=== PATIENT | female | born 1980 | race African-American/Black ===

== ENCOUNTER 2020-08-02 05:07 | Emergency (ER) | payer OTHER, SELFPAY ==
[2020-08-02] MEDS ORDERED: Morphine 4 MG/ML VIAL ONE (05:48)
[2020-08-02] MEDS ORDERED: Ondansetron PF 4 MG/2 ML Vial ONE (05:49)
[2020-08-02 05:57] LABS: #Eosinphils 0.1 thou/uL (0.0-0.7); #Lymphocytes 2.2 thou/uL (1.20-3.40); #Monocytes 0.4 thou/uL (0.11-0.59); #Neutrophils 2.2 thou/uL (1.40-6.50); %Basophils 0.9 % (0.0-1.0); %Eosinophils 2.4 % (0.0-10.0); %Lymphocytes 43.7 % (21.0-51.0); %Monocytes 8.4 % (0.0-10.0); %Neutrophils 44.7 % (42.0-75.0); Hemoglobin 12.8 g/dL (12.0-16.0); Mean Corpuscular HGB CONC 33.4 g/dL (32.0-36.0); Mean Corpuscular Hemoglobin 32.6 pg (27.0-31.0); Mean Corpuscular Volume 97.4 fL (78.0-98.0); Mean Platelet Volume 10.3 fL (7.4-10.4); Platelet Count 182 thou/uL (130-400); RBC Distribution Width 11.9 % (11.5-14.5); Red Blood Cell (RBC) Count 3.93 mill/uL (4.20-5.40)
[2020-08-02 06:01] LABS: Pregnancy Test - Urine (BHCG) Negative (Negative); Pregu Control Background? CLEAR/WHITE (CLR/WHITE); Pregu Control Bar Appear? YES (CONTROL BAR)
[2020-08-02 06:03] LABS: Bacteria/HPF None Seen HPF (None Seen); Bilirubin Negative (Negative); Blood, Urine Negative (Negative); Clarity Clear (Clear); Glucose, Urine (Dipstick) Normal (Negative); Ketone, Urine Trace mg/dL (Negative); Leukocyte Negative Leu/uL (Negative); Nitrite Negative (Negative); Protein, Urine (Dipstick) 50 mg/dL (Neg-Trace); Specific Gravity 1.047 (1.002-1.036); Specific Gravity, Urine 1.047 (1.002-1.036); Squamous Epithelial 0-3 HPF (0-3); WBC/HPF 0-3 HPF (0-3); pH, Urine 6.5 (5.0-9.0)
[2020-08-02 06:19] LABS: ALT (SGPT) 7 U/L (8-55); AST (SGOT) 14 U/L (5-34); Albumin 4.6 g/dL (3.5-5.0); Alkaline Phosphatase 69 U/L (40-110); Anion Gap 13 mmol/L (10-20); BUN (Urea Nitrogen) 11 mg/dL (7.0-18.7); Bilirubin, Total 0.3 mg/dL (0.2-1.2); Calc. Creatinine Clearance 0 mL/min (70-130); Calcium 8.7 mg/dL (7.8-10.44); Carbon Dioxide 24 mmol/L (22-29); Chloride 106 mmol/L (98-107); Globulin 3.2 g/dL (2.4-3.5); Glucose 94 mg/dL (70-105); Lipase 23 U/L (8-78); Potassium 3.4 mmol/L (3.5-5.1); Protein, Total 7.8 g/dL (6.0-8.3); Sodium 140 mmol/L (136-145)
[2020-08-02] MEDS ORDERED: Iopamidol 370 76% 100 ML VIAL ONE (12:51)
[2020-08-02 13:31] LABS: SARS-CoV-2 PCR by NAA Not Detected (NotDetected)
== END 2020-08-02 07:00 | disposition home or self-care (01) ==
LOC: ERS 05:07
DX: R10.9 Unspecified abdominal pain (principal); R43.8 Other disturbances of smell and taste; R68.83 Chills (without fever); T83.32XA Displacement of intrauterine contraceptive device, initial encounter; Z20.822 Contact with and (suspected) exposure to COVID-19
CPT/HCPCS: 74177; 80053; 81003; 81015; 81025; 83690; 85025; 87635; 96374; 96375; J2270; J2405; Q9967; U0003; U0005

== ENCOUNTER 2021-10-26 23:06 | Emergency (ER) | payer OTHER, SELFPAY ==
[2021-10-26] MEDS ORDERED: Ibuprofen 800 MG TAB ONE (23:37)
== END 2021-10-27 00:40 | disposition home or self-care (01) ==
LOC: ERS 23:06
DX: S16.1XXA Strain of muscle, fascia and tendon at neck level, initial encounter (principal); S39.012A Strain of muscle, fascia and tendon of lower back, initial encounter; S50.02XA Contusion of left elbow, initial encounter; F17.210 Nicotine dependence, cigarettes, uncomplicated; V43.52XA Car driver injured in collision with other type car in traffic accident, initial encounter

== ENCOUNTER 2021-11-05 09:13 | Emergency (ER) | payer SELFPAY ==
[2021-11-05] MEDS ORDERED: Ketorolac Tromethamine 30 MG/ML VIAL ONE (10:54)
== END 2021-11-05 11:03 | disposition home or self-care (01) ==
LOC: ERS 09:13
DX: S39.012A Strain of muscle, fascia and tendon of lower back, initial encounter (principal); F17.210 Nicotine dependence, cigarettes, uncomplicated; V89.2XXA Person injured in unspecified motor-vehicle accident, traffic, initial encounter
CPT/HCPCS: 72100; 96372; J1885

== ENCOUNTER 2022-01-12 11:00 | Emergency (ER) | payer OTHER ==
[2022-01-12] MEDS ORDERED: Dexamethasone 4 MG TAB ONE (12:23)
== END 2022-01-12 12:57 | disposition home or self-care (01) ==
LOC: ERS 11:00
DX: U07.1 COVID-19 (principal)
CPT/HCPCS: 99283; J8540; U0003; U0005